=== PATIENT | female | born 1955 | race Two or more races ===

== ENCOUNTER 2017-07-18 07:16 | Day surgery (SDC) | payer MEDICARE, MEDICAID ==
[2017-07-18] MEDS ORDERED: CEFAZOLIN SODIUM/DEXTROSE,ISO 50 ML IV ONE (07:42)
[2017-07-18] MEDS ORDERED: FENTANYL PF 100MCG/2ML AMPUL ONE (08:56)
[2017-07-18] MEDS ORDERED: MIDAZOLAM HCL 2 MG/2ML VIAL ONE (09:00)
[2017-07-18] MEDS ORDERED: SUCCINYLCHOLINE CHLORIDE 20 MG/ML VIAL ONE (09:00)
[2017-07-18] MEDS ORDERED: BUPIVACAINE 0.25% 75 MG/30 ML VIAL ONE (09:01)
[2017-07-18] MEDS ORDERED: BUPIVACAINE MPF 0.75% 30 ML VIAL ONE (09:01)
[2017-07-18] MEDS ORDERED: LIDOCAINE 1% INJ 50 ML MDV IJ ONE (09:03)
[2017-07-18] MEDS ORDERED: methylPREDNISolone ACETATE 80 MG/ML VIAL ONE (09:03)
[2017-07-18] MEDS ORDERED: EPINEPHRINE (1:1000) MDV 30 MG/30ML VIAL ONE (09:03)
[2017-07-18] MEDS ORDERED: ONDANSETRON HCL/PF 4 MG/2 ML VIAL ONE (10:30)
== END 2017-07-18 11:25 | disposition home or self-care (01) ==
LOC: DS 07:16
PROVIDERS: ATTEND Specialist
DX: M19.012 Primary osteoarthritis, left shoulder (principal); M75.22 Bicipital tendinitis, left shoulder; M65.812 Other synovitis and tenosynovitis, left shoulder; M75.112 Incomplete rotator cuff tear or rupture of left shoulder, not specified as traumatic; I10 Essential (primary) hypertension; F17.210 Nicotine dependence, cigarettes, uncomplicated; E78.5 Hyperlipidemia, unspecified; E66.9 Obesity, unspecified; G89.29 Other chronic pain; Z88.5 Allergy status to narcotic agent; Z98.890 Other specified postprocedural states; Z90.710 Acquired absence of both cervix and uterus; Z79.899 Other long term (current) drug therapy
CPT/HCPCS: 88304-TC; 88305-TC; 88311-TC; A4217; C1713; J0171; J0330; J0690; J1040; J2250; J2405; J2704; J3010; J3490; Z7610

== ENCOUNTER 2018-04-08 13:43 | Outpatient (CLI) | payer MEDICARE, MEDICAID | END 2018-04-08 23:59 | disposition home or self-care (01) | LOC: WOU 13:43 | PROVIDERS: ATTEND Surgery | DX: N62 Hypertrophy of breast (principal); L98.7 Excessive and redundant skin and subcutaneous tissue; M79.7 Fibromyalgia; G43.909 Migraine, unspecified, not intractable, without status migrainosus; F17.200 Nicotine dependence, unspecified, uncomplicated; Z90.710 Acquired absence of both cervix and uterus | CPT/HCPCS: G0463; Z7610 ==